=== PATIENT | male | born 1975 | race Caucasian/White ===

== ENCOUNTER 2019-06-10 10:59 | Emergency (ER) | payer BC ==
[2019-06-10 11:25] VITALS: BP 134/64
--- NOTE | 2019-06-10 11:37 | UC ---
UC General HPI - HPI Summary HPI Summary: pt went to jump and upon landing accidentally landed with the toes of his L foot curled under. he is c/o pain, swelling and bruising to the base of his toes/ball of foot. onset yesterday. - History of Current Complaint Chief Complaint: UCLowerExtremity Stated Complaint: LEFT FOOT CONCERN Time Seen by Provider: 06/10/19 11:24 Hx Obtained From: Patient Onset/Duration: Gradual Onset Timing: Constant Pain Intensity: 6 Aggravating: walking Associated Signs & Symptoms: Positive: Edema. Negative: Fever - Allergy/Home Medications Allergies/Adverse Reactions: Allergies Allergy/AdvReac Type Severity Reaction Status Date / Time amoxicillin [From Augmentin] Allergy Nausea And Verified 06/10/19 11:25 Vomiting clavulanic acid Allergy Nausea And Verified 06/10/19 11:25 [From Augmentin] Vomiting Home Medications: Home Medications Diclofenac Sodium EC TAB* [Voltaren EC TAB*] 25 mg PO TID PRN 06/10/19 [History Confirmed 06/10/19] Insulin Lispro [Humalog] 100 unit SC DAILY 06/10/19 [History Confirmed 06/10/19] Losartan TAB* [Cozaar TAB*] 25 mg PO DAILY 06/10/19 [History Confirmed 06/10/19] Rosuvastatin Calcium [Crestor] 5 mg PO DAILY 06/10/19 [History Confirmed ] PMH/Surg Hx/FS Hx/Imm Hx Endocrine History: Diabetes, Dyslipidemia - Surgical History Surgical History: None Surgery Procedure, Year, and Place: Bilateral ankles and right knee surgery x2, right shoulder surgery - Family History Known Family History: Positive: Non-Contributory - Social History Lives: With Family Alcohol Use: Occasionally Substance Use Type: None Smoking Status (MU): Never Smoked Tobacco Review of Systems All Other Systems Reviewed And Are Negative: No Constitutional: Negative: Fever Skin: Negative: Rash Musculoskeletal: Negative: Decreased ROM Neurological: Negative: Weakness, Paresthesia, Numbness Physical Exam Triage Information Reviewed: Yes Appearance: Well-Appearing Vital Signs: Initial Vital Signs Temp 97.6 F 06/10/19 11:19 Pulse 60 06/10/19 11:19 Resp 16 06/10/19 11:19 BP 134/64 06/10/19 11:19 Pulse Ox 97 06/10/19 11:19 Cardiovascular: Positive: RRR Musculoskeletal: Positive: Other: - LLE: hip, knee, achilles and ankle are without deformity or tenderness. foot=base of toes/ball of foot with brusing, swelling and tenderness. Rest of foot non tender. s/v/m is intact. Neurological: Positive: Alert Psychological: Positive: Age Appropriate Behavior Skin Exam: Normal Diagnostics - Radiology No standard instances Radiology Interpretation Completed By: Radiologist - IMPRESSION: NO EVIDENCE FOR FRACTURE. Course/Dx - Differential Dx - Multi-Symptom Differential Diagnoses: Other - no fx's or dislocation on xray. no concern for infection. - Diagnoses Provider Diagnosis: Sprain of foot, left, Contusion of left foot Discharge - Sign-Out/Discharge Documenting (check all that apply): Patient Departure All imaging exams completed and their final reports reviewed: Yes - Discharge Plan Condition: Stable Disposition: HOME Patient Education Materials: Foot Contusion (ED), Foot Sprain (ED) Referrals: Tor Ovalle MD [Medical Doctor] - 7 Days Additional Instructions: USE THE POST OP SHOE UNTIL CLEARED. - Billing Disposition and Condition Condition: STABLE Disposition: Home
== END 2019-06-10 12:02 | disposition home or self-care (01) ==
LOC: UCCORT 10:59
DX: S93.602A Unspecified sprain of left foot, initial encounter (principal); S90.32XA Contusion of left foot, initial encounter; X58.XXXA Exposure to other specified factors, initial encounter; Y93.89 Activity, other specified; Y92.9 Unspecified place or not applicable; E11.9 Type 2 diabetes mellitus without complications; Z79.4 Long term (current) use of insulin; E78.5 Hyperlipidemia, unspecified
CPT/HCPCS: 99202; G0463